=== PATIENT | male | born 2000 | race Caucasian/White ===

== ENCOUNTER 2024-09-30 09:31 | Emergency (ER) | payer OTHER, SELFPAY ==
[2024-09-30] VITALS (11 sets, daily range): BP systolic 106–133; BP diastolic 57–88; PULSE 70–105; RESP 13–16; TEMP 36.8–37.1; O2SAT 96–99; BMI 24.9
--- NOTE | 2024-09-30 10:04 | ED_ITS ---
HPI - Back Pain/Injury General Chief Complaint: Back Pain/Injury Stated Complaint: Back pain, no fall Time Seen by Provider: 09/30/24 09:43 Source: patient History of Present Illness HPI Narrative: Patient here for complaints 3 days of bilateral lower back pain with 1 episode of urinary incontinence. Has had fever and chills. No cough cold or congestion. Otherwise no urinary frequency. No leg numbness tingling or weakness. However, at times gets tingling to the bilateral hands and feet. Patient has history of traumatic left pneumothorax. He did fall 2 weeks ago while skiing. He did land on his left side. Denies any trouble breathing. No prior history of back surgery or MRI. Is not on any chemotherapy or radiation therapy. No IV drug use or diabetes. No history of immunosuppression or immunocompromise conditions. Related Data Home Medications Medication Instructions Recorded Confirmed No Known Home Medications 12/14/22 10/04/24 Allergies Allergy/AdvReac Type Severity Reaction Status Date / Time No Known Drug Allergies Allergy Verified 10/04/24 10:38 Review of Systems Review of Systems Narrative: GENERAL: Positive chills, positive fatigue, malaise, positive fever, negative sweats. HEENT: Negative sinus pain, ear pain, sore throat RESPIRATORY: Negative dyspnea, cough CARDIOVASCULAR: Negative chest pain, palpitations GASTROINTESTINAL: Negative vomiting, nausea, abdominal pain : Negative dysuria, frequency, hematuria, positive urinary incontinence MUSCULOSKELETAL: Positive back, muscle or bony pain SKIN: Negative rash, skin lesions NEUROLOGIC: Negative weakness, positive numbness ROS Unobtainable: All systems reviewed & are unremarkable except as noted in HPI and below Patient History Smoking Status: Unknown if ever smoked Exam Narrative Exam Narrative: GENERAL: in no distress, not toxic not dyspneic HEAD: Normocephalic. EYES: Pupils equal round ENT: Mucous membranes moist. NECK: Trachea midline. CARDIOVASCULAR: Regular rate and rhythm RESPIRATORY: Clear to auscultation. Breath sounds equal bilaterally. No wheezes, rales, or rhonchi. GASTROINTESTINAL: Abdomen soft, non-tender EXTREMITIES: No gross deformities. BACK: No flank tenderness. There is reproducible bilateral paralumbar muscle tenderness. No midline tenderness or step-off of the lumbar spine. Patient does have pain with leaning forward back and doing side bends. He denies any leg numbness tingling or weakness at this time. NEURO: AOx4. Clear speech, strong bilateral patellar reflexes and ankle flexion- extension. Light touch intact to bilateral lower legs. SKIN: Warm and dry PSYCH: Not anxious, is cooperative Initial Vital Signs Initial Vital Signs: Vital Signs Temperature 98.4 F 09/30/24 09:33 Pulse Rate 105 H 09/30/24 09:33 Respiratory Rate 13 09/30/24 09:33 Blood Pressure 133/88 09/30/24 09:33 Pulse Oximetry 96 09/30/24 09:33 Oxygen Delivery Method Room Air 09/30/24 09:33 Course Orders Ordered: Discontinued Medications Sodium Chloride (Normal Saline 0.9%) 1,000 mls @ 1,000 mls/hr IV BOLUS ONE Stop: 09/30/24 11:02 Last Infusion: 09/30/24 12:05 Dose: Infused Documented By: Admin: 09/30/24 10:31 Dose: 1,000 mls/hr Documented By: FARRAH Ketorolac Tromethamine (Ketorolac 30 Mg/Ml Vial) 15 mg IV NOW ONE Stop: 09/30/24 10:04 Last Admin: 09/30/24 10:31 Dose: 15 mg Documented By: FARRAH Ondansetron HCl (Ondansetron 4 Mg/2 Ml Inj) 4 mg IV NOW ONE Stop: 09/30/24 10:04 Last Admin: 09/30/24 10:32 Dose: 4 mg Documented By: FARRAH Vital Signs Vital signs: Vital Signs - 8 hr 09/30/24 09:33 09/30/24 12:12 09/30/24 12:53 Temperature 98.4 F 98.2 F Pulse Rate 105 H 74 Respiratory Rate 13 16 Blood Pressure 133/88 106/57 L Pulse Oximetry 96 96 Oxygen Delivery Method Room Air Room Air MDM - Back Pain/Injury Lab Data 09/30/24 10:15 09/30/24 10:15 Labs: Lab Results 09/30/24 09/30/24 09/30/24 Range/Units 09:45 10:15 10:30 WBC 1.8 L* (4.5-11.0) X10^3/uL RBC 5.34 (4.5-5.9) X10^6/uL Hgb 16.9 (13.5-17.5) g/dL Hct 48.1 (41-53) % MCV 90.1 (80-100) fL MCH 31.6 (26-34) PG MCHC 35.1 (30-36) % RDW 12.4 (11.6-14.8) % Plt Count 83 L (150-400) X10^3/uL Neut % (Auto) Not Reportable Lymph % (Auto) Not Reportable Mcdonald % (Auto) Not Reportable Eos % (Auto) Not Reportable Baso % (Auto) Not Reportable Lymph # (Auto) Not Reportable Mcdonald # (Auto) Not Reportable Baso # (Auto) Not Reportable Total Counted 25 Seg Neutrophils % 80.0 H (38-70) % Band Neutrophils % 8.0 H (3-7) % Lymphocytes % (Manual) 12.0 L (25-45) % Neutrophils # (Manual) 1584 L (5091-3212) /uL RBC Morphology Normal morphology Sodium 130 L (137-145) mmol/L Potassium 4.0 (3.4-5.1) mmol/L Chloride 96 L (98-107) mmol/L Carbon Dioxide 22 (22-32) mmol/L BUN 9 (9-20) mg/dL Creatinine 0.88 (0.66-1.25) mg/dL Estimated GFR > 60 (>60) mL/min BUN/Creatinine Ratio 10.2 (6-22) Glucose 140 H (70-99) mg/dL Lactate 1.3 (0.7-2.1) mmol/L Calcium 9.0 (8.4-10.2) mg/dL Total Bilirubin 0.7 (0.2-1.3) mg/dL AST 49 (17-59) IU/L ALT 50 H (<50) IU/L Alkaline Phosphatase 42 (38-126) U/L Total Protein 7.9 (6.3-8.2) g/dL Albumin 4.8 (3.5-5.0) g/dL Globulin 3.1 (1.7-4.1) g/dL Albumin/Globulin Ratio 1.5 (1.0-2.8) Lipase 37 (23-300) U/L Procalcitonin 0.107 (<0.5) ng/mL Urine RBC 0-1/hpf (0-5/HPF) Urine WBC 0-1/hpf (0-5/HPF) Ur Squamous Epith Cells None seen (0-5/HPF) Urine Bacteria None seen (None) Ur Culture Indicated? Cult not indicated Vol Urine Centrifuged 10ml (spun) Chlamy pneumoniae PCR Not detected (Not Detect) Adenovirus (PCR) Not detected (Not Detect) B. pertussis DNA (PCR) Not detected (Not Detect) B.parapertussis DNA PCR Not detected (Not Detecte) Coronavirus OC43 (PCR) Not detected (Not Detect) Coronavirus HKU1 (PCR) Not detected (Not Detect) Coronavirus 229E (PCR) Not detected (Not Detect) SARS-CoV-2 (PCR) Not detected (Not Detecte) Coronavirus NL63 (PCR) Not detected (Not Detect) HIV 1&2 Ab/P24 Ag 4thGn Negative (NEGATIVE) Human Metapneumovir PCR Not detected (Not Detect) Influenza Type A (PCR) Not detected (Not Detect) Influenza Type B (PCR) Not detected (Not Detect) M. pneumoniae (PCR) Not detected (Not Detect) Parainfluenza 1 (PCR) Not detected (Not Detect) Parainfluenza 2 (PCR) Not detected (Not Detect) Parainfluenza 3 (PCR) Not detected (Not Detect) Parainfluenza 4 (PCR) Not detected (Not Detect) RSV (PCR) Not detected (Not Detect) Entero/Rhino (PCR) Not detected (Not Detect) Urine Dip Bedside Urine Glucose Negative Bedside Urine Bilirubin - Negative Bedside Urine Ketone - Negative Urine Specific Amoret 1.010 Bedside Urine Occult Blood - Negative Bedside Urine pH 6.0 Bedside Urine Protein +/- 15 Bedside Urine Urobilinogen - Negative Bedside Urine Nitrite - Negative Bedside Urine Leukocytes - Negative Esterase Imaging Data MRI lumbar spine: Radiologist's Impression: [place] [address] Magnetic Resonance Report Signed Patient: Red Moreland MR#: [id number] : 2000 Acct:[id number] Age/Sex: 24 / M Date of Service: 09/30/24 Loc: ED Accession Number: [id number] Procedure: MR lumbar spine wo/w con Ordering Provider: Jaquan Perkins MD PROCEDURE: MR LUMBAR SPINE WO/W CON INDICATIONS: Fever/back pain/incontinence TECHNIQUE: Noncontrast sagittal T1 spin echo and T2 fast spin echo, sagittal STIR, axial T1 and T2 fast spin echo through the lumbar spine. In cases with scoliosis, additional coronal T2 fast spin echo may be performed. After the administration of contrast, sagittal and axial T1 spin echo with fat saturation through the lumbar spine. COMPARISON: [facility], CT, CT CHEST ABD PEL W CON, 09/30/2024, 10:24. FINDINGS: Image quality: Diagnostic Alignment and curvature: There is normal bony alignment. Marrow: Marrow is of normal overall signal. No acute vertebral body compression fractures. No suspicious marrow enhancement. Spinal cord: Conus medullaris terminates at the T12-L1 level. Visualized spinal cord demonstrates normal signal, without suspicious enhancement. Paraspinous soft tissues: No paravertebral masses or abnormal enhancement. T12-L1: Normal appearance. L1-L2: Normal appearance. L2-L3: No significant abnormality is seen. L3-L4: The disc height and disk signal are well-preserved. Mild generalized disc bulge is seen. Mild facet joint hypertrophy is seen. There is moderate right-sided and mild left-sided neural foraminal narrowing. Minimal central canal narrowing is seen. L4-L5: The disc height and disk signal are relatively well-preserved. Mild to moderate disc bulge is seen, with a central disc protrusion. Mild facet joint hypertrophy is seen. Moderate bilateral neural foraminal narrowing can be seen, left worse than right. Minimal central canal narrowing is seen. L5-S1: The disc height and disk signal are well-preserved. Mild generalized disc bulge is seen. Mild facet joint hypertrophy is seen. Mild bilateral neural foraminal narrowing is seen. Minimal central canal narrowing is seen. IMPRESSION: Negative for epidural abscess. No findings of discitis or osteomyelitis. Premature lower lumbar spine degenerative changes are seen Dictated by: Vladimir Holley M.D. on 09/30/2024 at 11:48 Approved by: Vladimir Holley M.D. on 09/30/2024 at 11:51 CT chest abdomen and pelvis: Radiologist's Impression: [address] [address] [address] Scan Report Signed Patient: Red Moreland MR#: [id number] : 2000 Acct:[id number] Age/Sex: 24 / M Date of Service: 09/30/24 Loc: ED Accession Number: [id number] Procedure: CT chest abd pel w con Ordering Provider: Jaquan Perkins MD PROCEDURE: CT CHEST ABD PEL W CON INDICATIONS: Sepsis TECHNIQUE: After the administration of intravenous contrast, 5 mm thick sections acquired from the lung apices to the symphysis. 5 mm coronal and sagittal reformats were performed, with additional 7 mm MIP reformats through the lungs. For radiation dose reduction, the following was used: automated exposure control, adjustment of mA and/or kV according to patient size. COMPARISON: None. FINDINGS: Image quality: Excellent. CHEST: Lower Neck: No enlarged lymph nodes. Thyroid: No thyroid nodules which require sonographic follow up, per consensus guidelines. Axillae: No enlarged lymph nodes. Chest Wall: Unremarkable. Lungs and Pleura: No pneumothorax or pleural effusions. There is a pleural base nodule in the medial aspect of the superior segment of the left lower lobe which measures approximately in the 1.7 x 1.1 cm and has a Hounsfield measurement of 23.7, potentially representing a benign cystic lesion. Consider a potential nerve root sheath cyst from the left 7th intercostal nerve. No other pulmonary nodules are identified. Heart: Heart size is normal. No pericardial effusion. Thoracic Vessels: The aorta and pulmonary arteries demonstrate normal size. Mediastinum and Cate: No enlarged lymph nodes. Esophagus: No wall thickening. No hiatal hernia. ABDOMEN: Liver: No solid mass. Gallbladder: No radiopaque gallstones or wall thickening. Biliary ducts: No biliary dilation. Pancreas: No ductal dilation. Spleen: Size is within normal limits. Adrenal Glands: No adrenal nodules. Kidneys and Ureters: No hydronephrosis. No solid mass. No complex renal cystic lesion which requires follow up. Stomach and Bowel: Normal colonic caliber, without significant wall thickening. Normal appendix. Peritoneum: No abnormal intraperitoneal fluid. No free air. Ventral Wall: No significant ventral hernia. Abdominal Nodes: No retroperitoneal or mesenteric adenopathy by size criteria. Vessels: Aorta and inferior vena cava are normal in size. PELVIS: Pelvic Organs: Unremarkable. Bladder: No bladder wall thickening, accounting for underdistention. Pelvic Nodes: No enlarged lymph nodes. Miscellaneous: No inguinal hernias are seen. Bones: No aggressive osseous abnormality. IMPRESSION: 1. No acute process noted in the chest, abdomen, and pelvis. 2. Normal appendix. 3. Probable benign cystic lesion in the left hemithorax. Consider left posterior 7th intercostal nerve sheath cyst. It measures 1.7 x 1.1 cm. Dictated by: Damion Alexander M.D. on 09/30/2024 at 11:32 Approved by: Damion Alexander M.D. on 09/30/2024 at 11:42 [facility] Narrative Medical decision making narrative: Patient here for complaints 3 days of bilateral lower back pain with 1 episode of urinary incontinence. Has had fever and chills. No cough cold or congestion. Otherwise no urinary frequency. No leg numbness tingling or weakness. However, at times gets tingling to the bilateral hands and feet. Patient has history of traumatic left pneumothorax. He did fall 2 weeks ago while skiing. He did land on his left side. Denies any trouble breathing. No prior history of back surgery or MRI. Is not on any chemotherapy or radiation therapy. No IV drug use or diabetes. No history of immunosuppression or immunocompromise conditions. After history and exam, CBC CMP procalcitonin lactic acid CT chest abdomen pelvis normal saline Zofran Toradol respiratory panel, if unremarkable may proceed to MRI of lumbar spine [facility] Medical records reviewed: No recent visit for this complaint Differential considered: Includes but not limited to diskitis spinal abscess UTI pyelonephritis pneumonia sepsis Lab Test results independently reviewed as above. Pertinent findings: WBC 1.8 hemoglobin 16.9 hematocrit 48.1 platelets 83 Imaging studies independently reviewed: CT chest abdomen pelvis no acute finding, lumbar spine MRI no acute finding Consultations: 3:20 p.m.. Spoke with [facility] hematology on-call for us, patient can be discharged home. No new medications. Needs repeat CBC with primary care and if still abnormal patient to follow up with their services. 3:41 p.m.. Spoke with hospitalist, Dr. Stoner, at this time likely not ITP. Would send off for HIV screen though. No need for admission at this time. Re-evaluations: 1:10 p.m.. Updated patient results. Imaging CT scan MRI are reassuring. Blood work reassuring except for CBC. Waiting callback for hematology services for follow up. Reviewed with patient this appears to be musculoskeletal as neurological infectious workup is reassuring. 3:40 p.m.. Updated patient my discussion with hematology. I recommend him not going to [place] until he gets blood work done. Current blood results could be hazardous if he or fall sick or have trauma on his trip. Discussion: Appropriate for discharge home. Exam is reassuring. Hematology was consulted. I did inform patient about his trip to [place] by cardiac needs to be reconsidered, given his CBC and immune cells and platelets could be hazardous. He is planning to leave next week. I informed him he will need to get his blood work at least done before deciding to leave for his trip. Return precautions reviewed. He desires discharge home. Diagnosis: Lower back pain, leukopenia, thrombocytopenia Discharge Plan Departure Patient Disposition: Home Clinical Impression: Thrombocytopenia Acute back pain Qualifiers: Back pain location: low back pain Back pain laterality: bilateral Sciatica presence: without sciatica Qualified Code(s): M54.50 - Low back pain, unspecified Leukocytopenia, unspecified Qualifiers: Leukopenia type: unspecified Qualified Code(s): D72.819 - Decreased white blood cell count, unspecified Instructions: DI for Low Back Pain Activity Restrictions/Additional Instructions: Please see family doctor next week before your plan trip or return here for repeat blood work, CBC to check your white cell count and platelets as both of them are very low. This does pose a risk for infection or bleeding. We will need to recheck if they are the same as today. We have contacted protection specialist regarding this. No prescriptions are indicated at this time. Return if worse if any questions or concerns. Remaining blood work and imaging studies are reassuring. Return if worse if any questions or concerns. Prescriptions: No Action No Known Home Medications Stand Alone Forms: Patient Portal/API/Survey
[2024-09-30 10:30] LABS: Hematocrit 48.1 % (41-53); Hemoglobin 16.9 g/dL (13.5-17.5); Mean Corpuscular HGB Conc 35.1 % (30-36); Mean Corpuscular Hemoglobin 31.6 PG (26-34); Mean Corpuscular Volume 90.1 fL (80-100); Platelet Count 83 X10^3/uL (150-400); Red Blood Cell Count 5.34 X10^6/uL (4.5-5.9); Red Cell Distribution Width 12.4 % (11.6-14.8)
[2024-09-30] MEDS: KETOROLAC 30 MG/ML VIAL 15 MG IV (10:31)
[2024-09-30] MEDS: SODIUM CHLORIDE 0.9% 1,000 ML 1000 ML IV (10:31)
[2024-09-30] MEDS: ONDANSETRON 4 MG/2 ML INJ IV (10:32)
[2024-09-30 10:34] LABS: Add Manual Diff / Slide Review YES; White Blood Cell Count 1.8 X10^3/uL (4.5-11.0)
[2024-09-30 10:41] LABS: Lactate (Lactic Acid) 1.3 mmol/L (0.7-2.1)
[2024-09-30 10:42] LABS: Alanine Aminotransferase 50 IU/L (<50); Albumin 4.8 g/dL (3.5-5.0); Albumin Globulin Ratio 1.5 (1.0-2.8); Alkaline Phosphatase 42 U/L (38-126); Aspartate Aminotransferase 49 IU/L (17-59); BUN Creatinine Ratio 10.2 (6-22); Bilirubin Total 0.7 mg/dL (0.2-1.3); Blood Urea Nitrogen 9 mg/dL (9-20); Carbon Dioxide 22 mmol/L (22-32); Chloride 96 mmol/L (98-107); Estimated Glomerular Filt Rate > 60 mL/min (>60); Globulin 3.1 g/dL (1.7-4.1); Glucose 140 mg/dL (70-99); HEMOLYSIS < 15 (0-50); Lipase 37 U/L (23-300); Sodium 130 mmol/L (137-145); Total Protein 7.9 g/dL (6.3-8.2)
[2024-09-30 10:45] LABS: Bacteria Urine None Seen; Culture Indicated Urine Cult Not Indicated; RBC Urine 0-1/HPF (0-5/HPF); Squamous Epithelial Cell Urine None Seen (0-5/HPF); Urine Volume 10mL (spun); WBC Urine 0-1/HPF (0-5/HPF)
--- NOTE | 2024-09-30 10:45 | PC.NURSE ---
Patient presents to the ED with lower back pain that radiates up the spine, neck stiffness and general malaise. Reports being feverish with increased urinary frequency the past two days and feeling increasingly worse the past week. Denies blood in urine, burning with urination and new sexual partners. No hx of kidney stones. Reports previous history of collapsed lung and 15 foot fall while skiing two weeks ago. Ambulates without issue, gait WNL.
[2024-09-30 10:59] LABS: Procalcitonin 0.107 ng/mL (<0.5)
[2024-09-30 11:18] LABS: Neutrophils Absolute Manual 1584 /uL (3000-5900); RBC Morphology Normal Morphology; Total Cells Counted 25
[2024-09-30 11:30] LABS: Adenovirus Not Detected (Not Detect); B. parapertussis Not Detected (Not Detecte); Bordetella pertussis Not Detected (Not Detect); Chlamydophila pneumoniae Not Detected (Not Detect); Coronavirus 229E Not Detected (Not Detect); Coronavirus HKU1 Not Detected (Not Detect); Coronavirus NL 63 Not Detected (Not Detect); Coronavirus OC43 Not Detected (Not Detect); Human Metapneumovirus Not Detected (Not Detect); Human Rhinovirus/Enterovirus Not Detected (Not Detect); Influenza A Not Detected (Not Detect); Influenza B Not Detected (Not Detect); Mycoplasma pneumoniae Not Detected (Not Detect); Parainfluenza Virus 1 Not Detected (Not Detect); Parainfluenza Virus 2 Not Detected (Not Detect); Parainfluenza Virus 3 Not Detected (Not Detect); Parainfluenza Virus 4 Not Detected (Not Detect); Respiratory Syncytial Virus Not Detected (Not Detect); SARS- CoV-2 Not Detected (Not Detecte)
--- NOTE | 2024-09-30 11:52 | DI.MRI.S_ITS ---
PROCEDURE: MR LUMBAR SPINE WO/W CON INDICATIONS: Fever/back pain/incontinence TECHNIQUE: Noncontrast sagittal T1 spin echo and T2 fast spin echo, sagittal STIR, axial T1 and T2 fast spin echo through the lumbar spine. In cases with scoliosis, additional coronal T2 fast spin echo may be performed. After the administration of contrast, sagittal and axial T1 spin echo with fat saturation through the lumbar spine. COMPARISON: [facility], CT, CT CHEST ABD PEL W CON, 09/30/2024, 10:24. FINDINGS: Image quality: Diagnostic Alignment and curvature: There is normal bony alignment. Marrow: Marrow is of normal overall signal. No acute vertebral body compression fractures. No suspicious marrow enhancement. Spinal cord: Conus medullaris terminates at the T12-L1 level. Visualized spinal cord demonstrates normal signal, without suspicious enhancement. Paraspinous soft tissues: No paravertebral masses or abnormal enhancement. T12-L1: Normal appearance. L1-L2: Normal appearance. L2-L3: No significant abnormality is seen. L3-L4: The disc height and disk signal are well-preserved. Mild generalized disc bulge is seen. Mild facet joint hypertrophy is seen. There is moderate right-sided and mild left-sided neural foraminal narrowing. Minimal central canal narrowing is seen. L4-L5: The disc height and disk signal are relatively well-preserved. Mild to moderate disc bulge is seen, with a central disc protrusion. Mild facet joint hypertrophy is seen. Moderate bilateral neural foraminal narrowing can be seen, left worse than right. Minimal central canal narrowing is seen. L5-S1: The disc height and disk signal are well-preserved. Mild generalized disc bulge is seen. Mild facet joint hypertrophy is seen. Mild bilateral neural foraminal narrowing is seen. Minimal central canal narrowing is seen. IMPRESSION: Negative for epidural abscess. No findings of discitis or osteomyelitis. Premature lower lumbar spine degenerative changes are seen Dictated by: Vladimir Holley M.D. on 09/30/2024 at 11:48 Approved by: Vladimir Holley M.D. on 09/30/2024 at 11:51
[2024-09-30 16:38] LABS: HIV 1 & 2 Ab/Ag 4th Gen Combo NEGATIVE (NEGATIVE)
== END 2024-09-30 15:52 | disposition home or self-care (01) ==
PROVIDERS: Emergency Provider Emergency Medicine
DX: M54.50 Low back pain, unspecified (principal); D72.819 Decreased white blood cell count, unspecified; D69.6 Thrombocytopenia, unspecified
CPT/HCPCS: 36415; 71260; 72158; 74177; 80053; 81003; 81015; 83605; 83690; 84145; 85007; 85025; 87389; 87633; 96361; 96374; 96375; 99284; J1885; J2405; Q9967

== ENCOUNTER → 2024-10-04 10:44 | Outpatient (CLI) | payer OTHER, SELFPAY | PROVIDERS: Referring Provider Nurse Practitioner Family; Visit Provider Nurse Practitioner Family | DX: J02.9 Acute pharyngitis, unspecified (principal); R89.9 Unspecified abnormal finding in specimens from other organs, systems and tissues | CPT/HCPCS: 87070 ==

== ENCOUNTER → 2024-10-04 10:47 | Outpatient (CLI) | payer OTHER, SELFPAY ==
[2024-10-04 11:44] LABS: Add Manual Diff / Slide Review NO; Basophils Absolute Auto 0 /uL (0-100); Basophils Percent Auto 0.7 % (0-2); Eosinophils Absolute Auto 100 /uL (0-450); Eosinophils Percent Auto 1.9 % (2-4); Hematocrit 43.5 % (41-53); Hemoglobin 15.2 g/dL (13.5-17.5); Lymphocytes Absolute Auto 2200 /uL (1100-4500); Lymphocytes Percent Auto 43.8 % (25-40); Mean Corpuscular Hemoglobin 31.5 PG (26-34); Monocytes Absolute Auto 600 /uL (0-900); Monocytes Percent Auto 11.4 % (3-14); Neutrophils Absolute Auto 2100 /uL (1500-7000); Neutrophils Percent Auto 42.2 % (50-75); Platelet Count 140 X10^3/uL (150-400); Red Blood Cell Count 4.83 X10^6/uL (4.5-5.9); Red Cell Distribution Width 12.4 % (11.6-14.8); White Blood Cell Count 4.9 X10^3/uL (4.5-11.0)
[2024-10-04 11:52] LABS: Alanine Aminotransferase 58 IU/L (<50); Albumin 4.4 g/dL (3.5-5.0); Albumin Globulin Ratio 1.6 (1.0-2.8); Alkaline Phosphatase 42 U/L (38-126); Aspartate Aminotransferase 46 IU/L (17-59); BUN Creatinine Ratio 16.2 (6-22); Bilirubin Total 0.6 mg/dL (0.2-1.3); Blood Urea Nitrogen 12 mg/dL (9-20); Calcium 8.8 mg/dL (8.4-10.2); Carbon Dioxide 27 mmol/L (22-32); Chloride 102 mmol/L (98-107); Estimated Glomerular Filt Rate > 60 mL/min (>60); Globulin 2.8 g/dL (1.7-4.1); Glucose 83 mg/dL (70-99); HEMOLYSIS 17 (0-50); Sodium 136 mmol/L (137-145); Total Protein 7.2 g/dL (6.3-8.2)
[2024-10-05 04:39] LABS: RPR Screen Non Reactive (Non Reactive)
[2024-10-05 14:49] LABS: Hepatitis B Surface Antigen NEGATIVE s/c (NEGATIVE)
[2024-10-05 15:05] LABS: HIV 1 & 2 Ab/Ag 4th Gen Combo NEGATIVE (NEGATIVE); Hep C Virus Ab w/Reflex Quant NEGATIVE s/c (NEGATIVE)
== END ==
PROVIDERS: Referring Provider Nurse Practitioner Family; Visit Provider Nurse Practitioner Family
DX: J02.9 Acute pharyngitis, unspecified (principal); R89.9 Unspecified abnormal finding in specimens from other organs, systems and tissues
CPT/HCPCS: 36415; 80053; 85025; 86592; 86803; 87070; 87340; 87389